=== PATIENT | male | born 1950 | race African-American/Black ===

== ENCOUNTER 2021-05-23 18:24 | Emergency (ER) | payer OTHER ==
[~2021-05-23] VITALS: Ht 175.3 cm; Wt 83.9 kg
[2021-05-23 20:38] VITALS: BP 143/88
[2021-05-23] MEDS ORDERED: KETOROLAC TROMETH 60MG/2ML VIAL IM ONE (21:00)
== END 2021-05-23 18:34 | disposition home or self-care (01) ==
LOC: ER 18:28
DX: R51.9 Headache, unspecified (principal); R10.2 Pelvic and perineal pain; M62.838 Other muscle spasm; I10 Essential (primary) hypertension; Z76.0 Encounter for issue of repeat prescription
CPT/HCPCS: 96372; 99283; J1885

== ENCOUNTER 2021-05-29 22:29 | Emergency (ER) | payer OTHER ==
[~2021-05-29] VITALS: Ht 175.3 cm; Wt 83.9 kg
[2021-05-29 22:30] VITALS: BP 150/90
[2021-05-30] MEDS ORDERED: ACETAMINOPHEN/CODEINE#3 (300/30mg) TAB PO ONE (02:30)
[2021-05-30 03:01] LABS: Basophils # (auto) 0 10 ^3/uL (0-0.2); Basophils % (auto) 0.4 % (0.0-2.0); Eosinophils # (auto) 0.1 10 ^3/uL (0-0.8); Eosinophils % (auto) 1.5 % (0.0-7.0); Hematocrit 40.5 % (41.0-53.0); Hemoglobin 13.3 g/dL (13.5-17.5); Lymphocytes # (auto) 3.2 10 ^3/uL (0.4-5.4); Lymphocytes % (auto) 33.5 % (10.0-50.0); Mean Corpuscular Hemoglobin 27.7 pg (28.0-32.0); Mean Corpuscular Hgb Conc. 32.7 g/dL (32.0-36.0); Mean Corpuscular Volume 84.6 fL (80.0-100.0); Neutrophils % (auto) 53.6 % (37.0-80.0); Red Blood Cells 4.79 10^6/uL (4.5-5.90); White Blood Cell 9.4 10^3/uL (4.4-10.8)
[2021-05-30 03:12] LABS: Urine Bacteria FEW /hpf (None Seen); Urine Blood Negative /uL (Negative); Urine Specific Gravity 1.009 (1.001-1.035); Urine WBC 18 /hpf (0 - 3); Urine WBC Clumps PRESENT /hpf (None Seen)
[2021-05-30 03:16] LABS: BUN/Creatinine Ratio 14.1; CRP High Sensitivity 0.24 mg/dL (< 0.3); Calcium 8.9 mg/dL (8.5-10.1); Potassium 4.2 mmol/L (3.5-5.1)
[2021-05-30 03:19] LABS: Bilirubin, Total 0.2 mg/dL (0.2-1.0); Total Protein 8.2 g/dL (6.4-8.2)
== END 2021-05-30 04:51 | disposition home or self-care (01) ==
LOC: EDBD 22:29 → ER 22:33
DX: N39.0 Urinary tract infection, site not specified (principal); Z76.0 Encounter for issue of repeat prescription; I10 Essential (primary) hypertension; R60.0 Localized edema; Z87.820 Personal history of traumatic brain injury
CPT/HCPCS: 36415; 71045; 80053; 81001; 83880; 85025; 85652; 86141; 93970

== ENCOUNTER 2022-06-14 15:40 | Inpatient (IN) | payer OTHER ==
[~2022-06-14] VITALS: Ht 175.3 cm; Wt 79.6 kg
[2022-06-14] MEDS ORDERED: ASPirin 81 mg TAB PO ONE (16:00)
[2022-06-14] MEDS ORDERED: ONDANSETRON HCL 4 MG/2 ML VIAL IV ONE (16:00)
[2022-06-14] MEDS ORDERED: MORPHINE SULFATE 4 MG/ML SYR/VIAL IV ONE (16:00)
[2022-06-14 16:44] LABS: Basophils # (auto) 0 10 ^3/uL (0-0.2); Basophils % (auto) 0.5 % (0.0-2.0); Eosinophils # (auto) 0.1 10 ^3/uL (0-0.8); Eosinophils % (auto) 1.3 % (0.0-7.0); Hematocrit 38.3 % (41.0-53.0); Hemoglobin 12.2 g/dL (13.5-17.5); Lymphocytes % (auto) 36.1 % (10.0-50.0); Mean Corpuscular Hemoglobin 26.5 pg (28.0-32.0); Mean Corpuscular Hgb Conc. 31.8 g/dL (32.0-36.0); Mean Corpuscular Volume 83.2 fL (80.0-100.0); Monocytes # (auto) 0.7 10 ^3/uL (0-1.3); Monocytes % (auto) 13.6 % (0.0-12.0); Neutrophils # (auto) 2.6 10 ^3/uL (1.6-8.6); Neutrophils % (auto) 48.5 % (37.0-80.0); Nucleated Red Blood Cells % 0.1 %; Red Cell Distribution Width 15.5 % (11.8-14.3); White Blood Cell 5.4 10^3/uL (4.4-10.8)
[2022-06-14 16:57] LABS: Albumin 3.6 g/dL (3.4-5.0); Calcium 8.6 mg/dL (8.5-10.1); Magnesium 2.5 mg/dL (1.6-2.6); Potassium 4.6 mmol/L (3.5-5.1)
[2022-06-14 17:00] LABS: Bilirubin, Total 0.3 mg/dL (0.2-1.0); Total Protein 7.2 g/dL (6.4-8.2)
[2022-06-14 18:38] LABS: Urine Bacteria FEW /hpf (None Seen); Urine Blood Negative /uL (Negative); Urine Specific Gravity 1.012 (1.001-1.035); Urine WBC 1 /hpf (0 - 3)
[2022-06-14] MEDS ORDERED: hydrALAZINE HCL 20 MG/ML VL IV PRN (22:30)
[2022-06-14] MEDS ORDERED: DOCUSATE SOD 100 MG CAP PO PRN (22:30)
[2022-06-14] MEDS ORDERED: ACETAMINOPHEN 325 MG TAB PO PRN (22:30)
[2022-06-14] MEDS ORDERED: ONDANSETRON HCL 4 MG/2 ML VIAL IV PRN (22:30)
[2022-06-15] MEDS ORDERED: MORPHINE SULFATE INJ 2 MG/ml SYRG IV PRN
[2022-06-15] MEDS ORDERED: NITROGLYCERIN 0.4 MG SL TAB SL PRN
[2022-06-15 01:46] VITALS: BP 152/91
[2022-06-15] MEDS: HYDROcodone-ACET 5/325MG TAB PO PRN ×3 (02:03→14:41)
[2022-06-15] MEDS ORDERED: PROP40TA59 (02:37)
[2022-06-15] MEDS ORDERED: ALBU108A5 PO ×2 (02:37→12:36)
[2022-06-15] MEDS ORDERED: AMLO-496 PO ×2 (02:37→12:36)
[2022-06-15 05:19] VITALS: BP 144/87
[2022-06-15] MEDS: SODIUM CHLOR 0.9% PF (SALINE LOCK) 10ML VIAL/SYR IV SCH ×2 (06:23→10:16)
[2022-06-15 07:21] LABS: Basophils # (auto) 0 10 ^3/uL (0-0.2); Eosinophils # (auto) 0.1 10 ^3/uL (0-0.8); Neutrophils # (auto) 2.2 10 ^3/uL (1.6-8.6); Nucleated Red Blood Cells % 0.1 %
[2022-06-15 07:28] LABS: Basophils % (auto) 0.4 % (0.0-2.0); Eosinophils % (auto) 1.4 % (0.0-7.0); Hematocrit 35.5 % (41.0-53.0); Hemoglobin 11.4 g/dL (13.5-17.5); Lymphocytes # (auto) 2.4 10 ^3/uL (0.4-5.4); Lymphocytes % (auto) 43.4 % (10.0-50.0); Mean Corpuscular Hemoglobin 26.4 pg (28.0-32.0); Mean Corpuscular Volume 82.7 fL (80.0-100.0); Monocytes # (auto) 0.8 10 ^3/uL (0-1.3); Monocytes % (auto) 14.3 % (0.0-12.0); Neutrophils % (auto) 40.5 % (37.0-80.0); Red Blood Cells 4.29 10^6/uL (4.5-5.90); Red Cell Distribution Width 15.3 % (11.8-14.3); White Blood Cell 5.5 10^3/uL (4.4-10.8)
[2022-06-15 07:58] LABS: BUN/Creatinine Ratio 17.2; Bilirubin, Total 0.3 mg/dL (0.2-1.0); Calcium 8.6 mg/dL (8.5-10.1); Total Protein 6.2 g/dL (6.4-8.2)
[2022-06-15 08:00] VITALS: BP 155/73
[2022-06-15 09:22] VITALS: BP 155/73
[2022-06-15] MEDS ORDERED: FAMOTIDINE (10MG/ML) 2ML VL IV SCH (10:00)
[2022-06-15] MEDS ORDERED: amLODIPine BESYLATE 5 MG TAB PO SCH (10:00)
[2022-06-15] MEDS ORDERED: PROPRANOLOL HCL 20 MG TAB PO ONE (10:30)
[2022-06-15] MEDS ORDERED: HCTZ 25 MG TAB PO ONE (10:30)
[2022-06-15] MEDS ORDERED: IBUPROFEN 600 MG TAB PO ONE (10:45)
[2022-06-15] MEDS ORDERED: PROP40TA59 PO (12:36)
[2022-06-15] MEDS ORDERED: PROP20TA73 PO (12:40)
[2022-06-15] MEDS ORDERED: HYDR25TA5 PO (12:40)
[2022-06-15] MEDS ORDERED: ACET300T4 PO (12:41)
[2022-06-15 13:00] VITALS: BP 153/85
[2022-06-15 14:46] VITALS: BP 153/85
[2022-06-15] MEDS ORDERED: PROPRANOLOL HCL 20 MG TAB PO SCH (22:00)
[2022-06-16] MEDS ORDERED: HCTZ 25 MG TAB PO SCH (10:00)
== END 2022-06-15 16:05 | disposition home or self-care (01) | DRG 305 ==
LOC: ER 15:40 → EDBD 15:40 → TELE 23:58 → TELE-WESTW 06-15 01:27
PROVIDERS: ADMIT Nurse Practitioner Family; ATTEND Internal Medicine Nephrology
DX: I16.9 Hypertensive crisis, unspecified (principal); G89.29 Other chronic pain; F43.10 Post-traumatic stress disorder, unspecified; J44.9 Chronic obstructive pulmonary disease, unspecified; Z87.828 Personal history of other (healed) physical injury and trauma; Z20.822 Contact with and (suspected) exposure to COVID-19
CPT/HCPCS: 36415; 70450; 71045; 80053; 81001; 83735; 83880; 84484; 85025; 85379; 93005; 96374; 96375; 99291; G0378; J2405; J3490

== ENCOUNTER 2022-06-22 17:43 | Emergency (ER) | payer OTHER ==
[~2022-06-22] VITALS: Ht 175.3 cm; Wt 82.0 kg
[~2022-06-22 17:43] MED LIST: ACET300T4 PO; ALBU108A5 PO; AMLO-496 PO; HYDR25TA5 PO; PROP20TA73 PO
[2022-06-22 17:58] VITALS: BP 123/91
[2022-06-22] MEDS ORDERED: HYDROcodone-ACET 10/325MG TAB PO ONE (20:30)
[2022-06-22 22:40] LABS: Albumin 4.1 g/dL (3.4-5.0); BUN/Creatinine Ratio 12.2; Calcium 9.2 mg/dL (8.5-10.1); Potassium 4.4 mmol/L (3.5-5.1)
[2022-06-22 22:43] LABS: Bilirubin, Total 0.3 mg/dL (0.2-1.0); Total Protein 8.2 g/dL (6.4-8.2)
[2022-06-22 22:59] LABS: Basophils # (auto) 0 10 ^3/uL (0-0.2); Eosinophils # (auto) 0.1 10 ^3/uL (0-0.8); Lymphocytes # (auto) 2.5 10 ^3/uL (0.4-5.4); Lymphocytes % (auto) 37.3 % (10.0-50.0); Monocytes # (auto) 1.1 10 ^3/uL (0-1.3)
[2022-06-22 23:01] LABS: Basophils % (auto) 0.5 % (0.0-2.0); Eosinophils % (auto) 1.9 % (0.0-7.0); Hematocrit 41.9 % (41.0-53.0); Hemoglobin 13.3 g/dL (13.5-17.5); Mean Corpuscular Hemoglobin 26.6 pg (28.0-32.0); Mean Corpuscular Hgb Conc. 31.7 g/dL (32.0-36.0); Monocytes % (auto) 17.2 % (0.0-12.0); Neutrophils # (auto) 2.8 10 ^3/uL (1.6-8.6); Neutrophils % (auto) 43.1 % (37.0-80.0); Red Blood Cells 4.98 10^6/uL (4.5-5.90); Red Cell Distribution Width 15.6 % (11.8-14.3); White Blood Cell 6.6 10^3/uL (4.4-10.8)
[2022-06-24] MEDS ORDERED: HYDR-4798 PO (21:15)
== END 2022-06-23 02:10 | disposition home or self-care (01) ==
LOC: ER 17:43
DX: R07.89 Other chest pain (principal); R00.1 Bradycardia, unspecified; I10 Essential (primary) hypertension; J44.9 Chronic obstructive pulmonary disease, unspecified; Z79.899 Other long term (current) drug therapy
CPT/HCPCS: 36415; 71045; 80053; 84484; 85025; 93005

== ENCOUNTER 2022-06-24 19:11 | Emergency (ER) | payer OTHER ==
[~2022-06-24] VITALS: Ht 175.3 cm; Wt 82.0 kg
[2022-06-24 19:36] VITALS: BP 118/85
[2022-06-24] MEDS ORDERED: HYDROcodone-ACET 10/325MG TAB PO ONE (21:15)
[2022-06-24] MEDS ORDERED: HYDR-4798 PO (21:15)
== END 2022-06-24 21:29 | disposition home or self-care (01) ==
LOC: ER 19:11
DX: R51.9 Headache, unspecified (principal); F12.10 Cannabis abuse, uncomplicated; J44.9 Chronic obstructive pulmonary disease, unspecified; I10 Essential (primary) hypertension; Z76.0 Encounter for issue of repeat prescription